=== PATIENT | male | born 1960 | race Hispanic/Latino ===

== ENCOUNTER 2023-05-03 18:55 | Emergency (ER) | payer SELFPAY ==
[~2023-05-03] VITALS: Ht 172.7 cm; Wt 97.5 kg
[~2023-05-03 18:55] MED LIST: LORTAB5 PO; NORVASC PO
[2023-05-03 19:31] VITALS: BP 139/82
[2023-05-03 19:46] VITALS: BP 130/82
[2023-05-03 20:00] VITALS: BP 143/91
[2023-05-03 20:15] VITALS: BP 134/86
[2023-05-03] MEDS ORDERED: CLINDAMYCIN HY150 MG PO (20:20)
[2023-05-03] MEDS ORDERED: BACTRIM DS1 TAB PO (20:20)
[2023-05-03 20:30] VITALS: BP 135/83
== END 2023-05-03 20:39 | disposition home or self-care (01) | DRG 605 ==
LOC: ED 18:55
PROC: 0HQDXZZ Repair Right Lower Arm Skin, External Approach (ICD-10-PCS; principal; 2023-05-03)
DX: S51.851A Open bite of right forearm, initial encounter (principal); W54.0XXA Bitten by dog, initial encounter